=== PATIENT | female | born 1930 | race African-American/Black ===

== ENCOUNTER 2020-02-03 12:26 | Emergency (ER) | payer MEDICARE ==
[~2020-02-03] VITALS: Ht 165.1 cm; Wt 64.4 kg
--- OUTSIDE RECORDS SUMMARY | 2020-02-03 12:28 | XMS REPORT ---
Author Author [facility] Organization [facility] Address Unknown Phone Unavailable Care Team Providers Care Cna Per Diem Name Role Phone Unavailable Unavailable Problems This patient has no known problems. Allergies, Adverse Reactions, Alerts This patient has no known allergies or adverse reactions. Medications This patient has no known medications. Encounters Start Date/Time End Date/Time [facility] En[facility] ID 2019-09-17 08:09:58 Outpatient [facility] [id number] 2019-12-07 18:57:00 2019-12-07 18:57:00 Outpatient E [facility] MED [id number] 2019-05-14 10:38:00 2019-05-14 10:38:00 Outpatient [facility] MED [id number] 2019-02-09 08:18:00 2019-02-09 08:18:00 Outpatient [facility] [id number] 2019-02-01 13:23:00 2019-02-01 13:23:00 Outpatient [facility] CAR [id number] 2018-12-28 11:00:00 2018-12-28 11:00:00 Outpatient [id number]
--- NOTE | 2020-02-03 15:33 | Diagnostic Imaging Report ---
EXAM: CT right knee WITHOUT contrast INDICATION: Knee pain. Decreased range of motion. Fall. COMPARISON: None TECHNIQUE: Right knee was scanned utilizing a multidetector helical scanner without administration of IV contrast. Coronal and sagittal reformations were obtained. Routine protocol was performed. IV CONTRAST: None ORAL CONTRAST: Water COMPLICATIONS: None RADIATION DOSE: Total DLP: 352 mGy*cm Estimated effective dose: (DLP x 0.015 x size factor) mSv CTDIvol has been reviewed. It is below the limits set by the Radiation Protocol Committee (RPC). Dose modulation, iterative reconstruction, and/or weight based adjustment of the mA/kV was utilized to reduce the radiation dose to as low as reasonably achievable. FINDINGS: Scattered vascular calcification. No acute fracture, dislocation or evidence of avascular necrosis. 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 Diffuse muscle atrophy. Moderate sized suprapatellar knee joint effusion Lobulated septated Lamas's cyst. 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 Signed by: Dr. Te Boyd M.D. on 02/03/2020 3:30 PM
--- NOTE | 2020-02-03 15:37 | Diagnostic Imaging Report ---
EXAM: CT right hip WITHOUT contrast INDICATION: Hip pain. Decreased range of motion. Fall. COMPARISON: None TECHNIQUE: Right hip was scanned utilizing a multidetector helical scanner without administration of IV contrast. Coronal and sagittal reformations were obtained. Routine protocol was performed. IV CONTRAST: None ORAL CONTRAST: Water COMPLICATIONS: None RADIATION DOSE: Total DLP: 352 mGy*cm Estimated effective dose: (DLP x 0.015 x size factor) mSv CTDIvol has been reviewed. It is below the limits set by the Radiation Protocol Committee (RPC). Dose modulation, iterative reconstruction, and/or weight based adjustment of the mA/kV was utilized to reduce the radiation dose to as low as reasonably achievable. FINDINGS: Scattered vascular calcification. No acute fracture, dislocation or evidence of avascular necrosis. Moderate/advanced degenerative arthrosis in the right hip with space narrowing, subchondral sclerosis, subchondral cystic change and peripheral osteophytosis. Diffuse muscle atrophy. Physiologic amount of fluid in the hip joint. 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 Signed by: Dr. Te Boyd M.D. on 02/03/2020 3:33 PM
[2020-02-03 18:10] VITALS: BP 118/52
== END 2020-02-03 19:50 ==
LOC: ER 12:26
DX: M25.551 Pain in right hip (principal); M25.561 Pain in right knee; M25.461 Effusion, right knee; M71.21 Synovial cyst of popliteal space [Baker], right knee; M16.11 Unilateral primary osteoarthritis, right hip; W01.0XXA Fall on same level from slipping, tripping and stumbling without subsequent striking against object, initial encounter; Y92.89 Other specified places as the place of occurrence of the external cause; I10 Essential (primary) hypertension; E11.9 Type 2 diabetes mellitus without complications; F41.9 Anxiety disorder, unspecified
CPT/HCPCS: 99283